=== PATIENT | male | born 1975 | race Two or more races ===

== ENCOUNTER 2016-10-18 12:25 | Emergency (ER) | payer OTHER ==
[~2016-10-18] VITALS: Ht 165.1 cm; Wt 77.1 kg
--- NOTE | 2016-10-18 12:35 | NUR ---
PT BIB RA C/O CP L SIDED TIGHTNESS RADIATION TO L ARM WHICH WAS RELIEVED WITH 1 SPRAY OF NITRO ARABIC LINGUIST. NOTED WITH SOB AND HYPERVENTILATING. PT APPEARS VERY ANXIOUS, REPORTS ANXIETY ABOUT RECENT DX OF PANCREATIC CANCER AND LACK OF F/U CARE. ENCOURAGED SLOW DEEP BREATHING. DENIES CP NOW. SKIN WARM NONDIAPHORETIC. DENIES N/V/D. IN ER BED 09 ON MONITOR.
[2016-10-18] MEDS ORDERED: LORAZEPAM 1 MG TABLET ONE (12:40)
[2016-10-18] MEDS ORDERED: NITROGLYCERIN PACKET 1 GM PACKET ONE (12:40)
[2016-10-18 12:55] VITALS: BP 109/73
--- NOTE | 2016-10-18 12:55 | NUR ---
PT REFUSES BLOOD DRAW DESPITE THOROUGH EDUCATION BY CHEMICAL LABORATORY TESTER AND MYSELF. CREDIT AND COLLECTION MANAGER NOTIFIED.
[2016-10-18] MEDS ORDERED: NITROGLYCERIN PACKET 1 GM PACKET TOP ONE (13:00)
[2016-10-18] MEDS ORDERED: LORAZEPAM 1 MG TABLET PO ONE (13:00)
--- NOTE | 2016-10-18 13:03 | NUR ---
PT REFUSES EKG DESPITE EDUCATION.
--- NOTE | 2016-10-18 13:15 | NUR ---
IV removed. Catheter intact and site benign. Pressure and 4x4 applied to site. No bleeding noted. Patient does not wish to proceed with medical care recommended by Gricelda Sun [facility]. Patient given information related to possible complications, up to and including , which could occur as a result of leaving the hospital at this time. Patient verbalizes understanding of risks involved due to leaving against medical advice. Patient has signed AMA form.
== END 2016-10-18 13:32 | disposition left against medical advice (07) ==
LOC: ER 12:27
DX: R07.89 Other chest pain (principal); I25.2 Old myocardial infarction; F17.210 Nicotine dependence, cigarettes, uncomplicated
CPT/HCPCS: 71010; 93005; 99284; A4606; Z7610

== ENCOUNTER 2018-01-23 16:02 | Inpatient (IN) | payer MEDICAID, OTHER ==
[~2018-01-23] VITALS: Ht 165.1 cm; Wt 77.1 kg
--- NOTE | 2018-01-23 16:50 | NUR ---
RN NOTES RECEIVED REPORT FROM FOREIGN NESBITT RN
--- NOTE | 2018-01-23 18:30 | NUR ---
RN NOTES RECEIVED PT DIRECT TRANSFER FROM [facility], IN [facility]. NO SOB NOTED. TOLERATING ROOM AIR WELL, A/OX4, WITH RAC G#20 SL, INTACT AND PATENT. SKIN INTACT. V/S TAKEN FOLLOWS: TEPT: 97.9; P: 60; R: 20; BP: 112/72; SPO2: 99% ROOM AIR. PLACED ON TELE MONITOR, SINUS RHYTHMS HR 62 ON TELEMONITOR. BED IN LOW AND LOCKED POSITION. 1/2 SR UP FOR SAFETY. CALL LIGHT WITHIN REACH. NOTIFIED GAMBRELER HELPER PIOTR ASKEW FOR ADMISSION ORDERS. WILL ENDORSE TO PM SHIFT NURSE FOR ADMISSION AND RICHELLE
[2018-01-23] MEDS ORDERED: HYDROCODONE/APAP 5/325MG 1 EACH TABLET PO PRN (19:30)
[2018-01-23] MEDS ORDERED: MORPHINE SULFATE INJ 2 MG/ML DISP.SYRIN IV PRN (19:30)
[2018-01-23] MEDS ORDERED: Z GUARD REMEDY 2 OZ OINT TP PRN (19:30)
[2018-01-23] MEDS ORDERED: MAGNESIUM HYDROXIDE 30 ML UDC PO PRN (19:30)
[2018-01-23] MEDS ORDERED: ACETAMINOPHEN 325 MG TABLET PO PRN (19:30)
[2018-01-23] MEDS ORDERED: ONDANSETRON HCL/PF 4 MG/2 ML VIAL IVP PRN (19:30)
[2018-01-23] MEDS ORDERED: MAG HYDROX/AL HYDROX/SIMETH 30 ML UDC PO PRN (19:30)
--- NOTE | 2018-01-23 19:30 | NUR ---
MS/RN RECEIVE PATIENT AWAKE, ALERT, ORIENTED, COMFORTABLE, NO C/O PAIN, NO DISTRESS NOTED, CALL LIGHT IN REACH. WILL MONITOR.
[2018-01-23 20:00] VITALS: BP 106/70
[2018-01-23] MEDS: IV NS 0.9% 1,000 ML IV PRN (20:17)
[2018-01-23 20:33] LABS: ALANINE AMINOTRANSFERASE 32 U/L (12-78); ALBUMIN 3.2 g/dL (3.4-5.0); ALKALINE PHOSPHATASE 92 U/L (46-116); ASPARTATE AMINOTRANSFERASE 28 U/L (15-37); BILIRUBIN,TOTAL 0.4 mg/dL (0.2-1.0); CALCIUM, SERUM 8.4 mg/dL (8.5-10.1); CARBON DIOXIDE 22 mmol/L (21-32); CHLORIDE 108 mmol/L (98-107); CREATININE 0.8 mg/dL (0.6-1.3); GLUCOSE 92 mg/dL (74-106); LIPASE 2983 U/L (73-393); POTASSIUM 3.8 mmol/L (3.5-5.1); SODIUM SERUM 137 mmol/L (136-145); TOTAL PROTEIN, SERUM 6.6 g/dL (6.4-8.2); TROPONIN I < 0.017 ng/mL (0.00-0.056); UREA NITROGEN, BLOOD 13 mg/dL (7-18)
[2018-01-23 20:34] LABS: BASOPHILS % (AUTO) 0.3 % (0.0-2.0); EOSINOPHILS % (AUTO) 5.3 % (0.0-6.0); HEMATOCRIT 42 % (39-51); HEMOGLOBIN 13.6 g/dL (13.5-17.5); LYMPHOCYTES # (AUTO) 2.3 /CMM (0.8-4.8); LYMPHOCYTES % (AUTO) 34.2 % (20.0-44.0); MEAN CORPUSCULAR HEMOGLOBIN 30 PG (26.0-33.0); MEAN CORPUSCULAR HGB CONC 33 g/dl (31.0-36.0); MEAN CORPUSCULAR VOLUME 93 fL (80-96); MONOCYTES # (AUTO) 0.5 /CMM (0.1-1.30); MONOCYTES % (AUTO) 7.7 % (2.0-12.0); NEUTROPHILS # (AUTO) 3.5 /CMM (1.8-8.9); NEUTROPHILS % (AUTO) 52.5 % (43.0-81.0); PLATELET COUNT (AUTO) 264 /CMM (150-450); RDW COEFFICIENT OF VARIATION 12.8 (11.5-15.0); WHITE BLOOD COUNT (AUTO) 6.7 K/uL (4.3-11.0)
[2018-01-23 23:17] LABS: CHOLESTEROL 156 mg/dL (<200); HDL CHOLESTEROL 43 mg/dL (40-60); LDL 102 mg/dL (0-99)
[2018-01-23 23:18] LABS: THYROID STIMULATING HORMONE 0.127 uIU/mL (0.358-3.74); TRIGLYCERIDES 41 mg/dL (30-150)
[2018-01-24] MEDS: IV NS 0.9% 1,000 ML IV PRN ×2 (04:31→23:27)
--- NOTE | 2018-01-24 06:21 | NUR ---
MS/RN PATIENT STILL SLEEPING AT THIS TIME, GOOD SLEEP NOTED THE WHOLE SHIFT, PATIENT IS COMFORTABLE, NO DISTRESS NOTED, ALL NEEDS ATTENDED AT THIS TIME, WILL CONTINUE TO MONITOR.
[2018-01-24 07:05] LABS: BASOPHILS % (AUTO) 0.5 % (0.0-2.0); EOSINOPHILS % (AUTO) 7.6 % (0.0-6.0); HEMATOCRIT 40 % (39-51); HEMOGLOBIN 13.4 g/dL (13.5-17.5); MEAN CORPUSCULAR HEMOGLOBIN 30 PG (26.0-33.0); MEAN CORPUSCULAR HGB CONC 34 g/dl (31.0-36.0); MEAN CORPUSCULAR VOLUME 90 fL (80-96); MONOCYTES # (AUTO) 0.4 /CMM (0.1-1.30); MONOCYTES % (AUTO) 7.6 % (2.0-12.0); NEUTROPHILS # (AUTO) 2.6 /CMM (1.8-8.9); NEUTROPHILS % (AUTO) 47.3 % (43.0-81.0); PLATELET COUNT (AUTO) 259 /CMM (150-450); RDW COEFFICIENT OF VARIATION 13.2 (11.5-15.0); RED BLOOD CELL COUNT(AUTO) 4.44 MIL/uL (4.5-6.0); WHITE BLOOD COUNT (AUTO) 5.4 K/uL (4.3-11.0)
--- NOTE | 2018-01-24 07:20 | NUR ---
MS/RN Patient received Patient received from caustic cresylate shift superintendent. A/O X4, stating that pain is currently 3/10 and much improved since admission. Vital signs within normal range, safety measures in place, call light within reach. Will continue to monitor and ensure safety.
[2018-01-24] MEDS ORDERED: CT SWABBABLE VALVE TRANS SET 1 EA INFUS.SET MC ONE (07:24)
[2018-01-24] MEDS ORDERED: IV NS 0.9% 250 ML IV ONE (07:24)
[2018-01-24] MEDS ORDERED: IOHEXOL-350 100 ML VIAL IV ONE (07:24)
[2018-01-24] MEDS ORDERED: DIATR MEGLU/DIATRIZOATE SODIUM 30 ML BOTTLE (GASTROGRAPHIN) ONE (07:25)
[2018-01-24 07:51] LABS: CALCIUM, SERUM 7.7 mg/dL (8.5-10.1); CREATININE 0.8 mg/dL (0.6-1.3); MAGNESIUM 1.8 mg/dL (1.8-2.4); PHOSPHORUS 2.8 mg/dL (2.5-4.9); POTASSIUM 3.9 mmol/L (3.5-5.1)
--- NOTE | 2018-01-24 07:52 | NUR ---
MS/RN Consent Consent form signed for CT scan abdomen / pelvis with contrast. Oral contrast started.
[2018-01-24 08:07] VITALS: BP 115/72
[2018-01-24] MEDS: PANTOPRAZOLE 40 MG VIAL IV SCH (08:21)
[2018-01-24 08:33] VITALS: BP 115/72
--- NOTE | 2018-01-24 08:58 | NUR ---
MS/RN Labs Morning labs reviewed: -WBC 5.4 -Lipase 614
--- NOTE | 2018-01-24 12:17 | NUR ---
MS/RN CT scan results CT abdomen and pelvis resulted: -no evidence of abnormal pancreatic masses or lesions. -contracted gallbladder. [employer] called, Tho Nassar paged to inform of results. Patient requesting to eat and drink.
[2018-01-24 13:27] LABS: BILIRUBIN,DIRECT 0.1 mg/dL (0.0-0.2); BILIRUBIN,TOTAL 0.1 mg/dL (0.2-1.0)
[2018-01-24 13:29] LABS: ALBUMIN 3.1 g/dL (3.4-5.0); TOTAL PROTEIN, SERUM 5.9 g/dL (6.4-8.2)
--- NOTE | 2018-01-24 14:00 | NUR ---
MS/RN Diet Tolerating soft diet, no nausea or vomiting.
[2018-01-24 16:00] VITALS: BP 110/62
--- NOTE | 2018-01-24 16:00 | NUR ---
MS/RN S/B Surgery Seen by surgery - no surgery at this time, but will likely require gallbladder removal in future. Continue with diet as tolerated.
[2018-01-24 16:37] VITALS: BP 110/62
--- NOTE | 2018-01-24 18:20 | NUR ---
MS/RN End note Patient remains in stable condition, continues to deny pain, tolerating diet. For possible discharge tomorrow if labs remain within normal limits.
--- NOTE | 2018-01-24 19:30 | NUR ---
MS/RN RECEIVE PATIENT AWAKE, ALERT, ORIENTED, COMFORTABLE, NO C/O PAIN, NO DISTRESS NOTED, FAMILY MEMBERS AT BEDSIDE. WILL MONITOR.
[2018-01-24 20:00] VITALS: BP 138/83
--- NOTE | 2018-01-24 22:24 | NUR ---
MS/RN PATIENT IS ALREADY SLEEPING AT THIS TIME, APPEAR COMFORTABLE, NO SIGNS OF DISTRESS NOTED, CALL LIGHT IN REACH. WILL CONTINUE TO MONITOR.
[2018-01-25] MEDS: IV NS 0.9% 1,000 ML IV PRN (06:18)
--- NOTE | 2018-01-25 06:21 | NUR ---
MS/RN PATIENT IS AWAKE, COMFORTABLE, NO C/O PAIN, NO DISTRESS NOTED, ALL NEEDS ATTENDED AT THIS TIME, WILL CONTINUE TO MONITOR.
--- NOTE | 2018-01-25 07:19 | NUR ---
MS RN NOTES PATIENT RECEIVED RESTING INSIDE ROOM. SLEEPING, EASILY AROUSABLE THROUGH VERBAL AND TACTILE STIMULI. BREATHING EVEN AND UNLABORED. NO SOB OR ACUTE DISTRESS NOTED AT THIS TIME. PATIENT CALM AND RELAXED. NO CHANGES IN LOC NOTED AT THIS TIME. PATIENT CALM AND RELAXED. IV INTACT AND PATENT, NO SWELLING OR BLEEDING NOTED ON SITE. PATIENT DENIES ANY PAIN OR DISCOMFORT AT THIS TIME. WILL CONTINUE TO MONITOR. BED LOCKED AND IN LOW POSITION. BILATERAL UPPER SIDE RAILS UP AND LOCKED. CALL LIGHT WITHIN EASY REACH
[2018-01-25 08:00] VITALS: BP 135/90
[2018-01-25] MEDS: PANTOPRAZOLE 40 MG VIAL IV SCH (08:14)
--- NOTE | 2018-01-25 13:17 | NUR ---
MS RN NOTES PATIENT FOR DISCHARGE HOME TODAY. DISCHARGE INSTRUCTIONS AND EDUCATION GIVEN TO PATIENT AND VERBALIZED UNDERSTANDING. IV REMOVED WITH MINIMAL BLEEDING NOTED, PRESSURE DRESSING APPLIED TO SITE. ALL BELONGINGS COMPLETE ON DISCHARGE, NO REPORT OF MISSING INVENTORY. ACCOMPANIED PATIENT OUTSIDE HOSPITAL, PATIENT AMBULATORY. AFEBRILE, SKIN DRY AND WARM TO TOUCH, NO NEW SKIN BREAKDOWN NOTED.PATIENT LEFT UNIT WITH SIGNIFICANT OTHER, LEFT VIA PRIVATE CAR. MD AWARE OF DISCHARGE
== END 2018-01-25 13:00 | disposition home or self-care (01) | DRG 282 ==
LOC: MED 18:15
PROVIDERS: ADMIT Nurse Practitioner Acute Care; ATTEND Nurse Practitioner Acute Care
DX: K85.10 Biliary acute pancreatitis without necrosis or infection (principal); Q43.3 Congenital malformations of intestinal fixation; F17.210 Nicotine dependence, cigarettes, uncomplicated; K80.20 Calculus of gallbladder without cholecystitis without obstruction; F12.90 Cannabis use, unspecified, uncomplicated; R07.89 Other chest pain; E88.09 Other disorders of plasma-protein metabolism, not elsewhere classified; E83.51 Hypocalcemia
CPT/HCPCS: 36415; 74178; 80048-TC; 80053-TC; 80061-TC; 80076-TC; 83605-TC; 83690-TC; 83735-TC; 84100-TC; 84443-TC; 84484-TC; 85025-TC; 87081-TC; C9113; J7030; J7050; Q9963; Q9967

== ENCOUNTER 2018-02-12 20:06 | Inpatient (IN) | payer MEDICAID ==
[~2018-02-12] VITALS: Ht 170.2 cm; Wt 77.1 kg
[2018-02-12 20:00] VITALS: BP 118/73
--- NOTE | 2018-02-12 20:13 | NUR ---
PATIENT WHEELCHAIRED TO ER BED BY EMT
[2018-02-12] MEDS ORDERED: MORPHINE SULFATE INJ 4 MG/ML DISP.SYRIN ONE ×3 (20:21→21:32)
[2018-02-12] MEDS ORDERED: LORAZEPAM INJ 2 MG/ML VIAL ONE (20:22)
[2018-02-12] MEDS ORDERED: ONDANSETRON HCL/PF 4 MG/2 ML VIAL ONE (20:22)
--- NOTE | 2018-02-12 20:25 | NUR ---
16G LEFT AC IV STARTED, BLOOD SAMLPE OBTAINED ANS SENT TO LAB. MEDICATED PT ORDERED
[2018-02-12] MEDS ORDERED: LORAZEPAM INJ 2 MG/ML VIAL IV ONE (20:30)
[2018-02-12] MEDS ORDERED: MORPHINE SULFATE INJ 2 MG/ML DISP.SYRIN IV ONE ×2 (20:30→21:30)
[2018-02-12] MEDS ORDERED: ONDANSETRON HCL/PF 4 MG/2 ML VIAL IVP ONE (20:30)
[2018-02-12] MEDS ORDERED: IV NS 0.9% 1,000 ML BAG IV ONE ×2 (20:30→22:00)
[2018-02-12 21:00] LABS: BASOPHILS # (AUTO) 0.1 /CMM (0.0-0.2); BASOPHILS % (AUTO) 1.1 % (0.0-2.0); CALCIUM, SERUM 8.4 mg/dL (8.5-10.1); CARBON DIOXIDE 30 mmol/L (21-32); CHLORIDE 105 mmol/L (98-107); EOSINOPHILS % (AUTO) 3.5 % (0.0-6.0); GLUCOSE 122 mg/dL (74-106); HEMATOCRIT 44 % (39-51); HEMOGLOBIN 14.6 g/dL (13.5-17.5); LYMPHOCYTES # (AUTO) 5.1 /CMM (0.8-4.8); LYMPHOCYTES % (AUTO) 55.3 % (20.0-44.0); MEAN CORPUSCULAR HEMOGLOBIN 29 PG (26.0-33.0); MEAN CORPUSCULAR HGB CONC 33 g/dl (31.0-36.0); MEAN CORPUSCULAR VOLUME 88 fL (80-96); MONOCYTES # (AUTO) 0.8 /CMM (0.1-1.30); MONOCYTES % (AUTO) 8.5 % (2.0-12.0); NEUTROPHILS # (AUTO) 2.9 /CMM (1.8-8.9); NEUTROPHILS % (AUTO) 31.6 % (43.0-81.0); PLATELET COUNT (AUTO) 382 /CMM (150-450); POTASSIUM 3.4 mmol/L (3.5-5.1); RDW COEFFICIENT OF VARIATION 12.3 (11.5-15.0); RED BLOOD CELL COUNT(AUTO) 4.99 MIL/uL (4.5-6.0); SODIUM SERUM 141 mmol/L (136-145); UREA NITROGEN, BLOOD 15 mg/dL (7-18); WHITE BLOOD COUNT (AUTO) 9.2 K/uL (4.3-11.0)
[2018-02-12 21:04] LABS: TROPONIN I < 0.017 ng/mL (0.00-0.056)
[2018-02-12 21:08] LABS: ALANINE AMINOTRANSFERASE 21 U/L (12-78); ALBUMIN 3.6 g/dL (3.4-5.0); ALKALINE PHOSPHATASE 98 U/L (46-116); ASPARTATE AMINOTRANSFERASE 27 U/L (15-37); BILIRUBIN,TOTAL 0.3 mg/dL (0.2-1.0); TOTAL PROTEIN, SERUM 7.1 g/dL (6.4-8.2)
[2018-02-12 21:14] LABS: ACETAMINOPHEN 0 ug/ml (10-30); ALCOHOL, BLOOD < 3 mg/dL (0-0); SALICYLATE 0.9 mg/dL (2.8-20.0)
--- NOTE | 2018-02-12 21:30 | NUR ---
REGISTERED SAFETY ENGINEER AT BED SIDE FOR US
[2018-02-12 21:40] LABS: LIPASE 8047 U/L (73-393)
--- NOTE | 2018-02-12 21:51 | NUR ---
CALLED NURSING TABLE OPERATOR AND REQUESTED A MED SURG RM FOR THIS PT. CALLED [facility] FOR PANEL CALL AND MAGGIE BRADY WAS PAGED
--- NOTE | 2018-02-12 22:01 | NUR ---
PT IS ASSIGNED TO MED SURG RM#: [id number], DX: PANCREATITIS, AND ACCEPTING: MAGGIE BRADY DNP
--- NOTE | 2018-02-12 22:18 | NUR ---
DIANE HENDRICKSON TOOK REPORT
--- NOTE | 2018-02-12 22:29 | NUR ---
TRANSPORTED PT TO MS BED VIA WHEELCHAIR
--- NOTE | 2018-02-12 22:50 | NUR ---
MS2/RN RECEIVE PATIENT FROM E.R., PATIENT IS AWAKE BUT VERY SLEEPY HENCE UNABLE TO OBTAIN ADMISSION INFORMATION, WILL TRY AGAIN WHEN PATIENT IS MORE AWAKE, PATIENT APPEAR COMFORTABLE, NO DISTRESS NOTED, MADE COMFORTABLE IN BED, WILL MONITOR.
[2018-02-12] MEDS ORDERED: ACETAMINOPHEN 325 MG TABLET PO PRN (23:30)
[2018-02-12] MEDS ORDERED: ZOLPIDEM TARTRATE 5 MG TABLET PO PRN (23:30)
[2018-02-12] MEDS ORDERED: Z GUARD REMEDY 2 OZ OINT TP PRN (23:30)
[2018-02-12] MEDS ORDERED: ONDANSETRON HCL/PF 4 MG/2 ML VIAL IVP PRN (23:30)
[2018-02-12] MEDS: HYDROMORPHONE INJ 2 MG/ML DISP.SYRIN IV PRN (23:31)
[2018-02-12] MEDS: IV NS 0.9% 1,000 ML IV PRN (23:38)
[2018-02-12] MEDS: PANTOPRAZOLE 40 MG VIAL IV SCH (23:49)
[2018-02-12] MEDS ORDERED: Thiamine 100 MG/ML VIAL ONE (23:56)
[2018-02-13] MEDS: Thiamine 100 MG in IV D5W 50 ML IV SCH ×2 (00:04→23:05)
[2018-02-13] MEDS: IV NS 0.9% 1,000 ML IV PRN ×3 (04:57→23:07)
[2018-02-13] MEDS: HYDROMORPHONE INJ 2 MG/ML DISP.SYRIN IV PRN ×2 (05:23→19:35)
[2018-02-13 06:26] LABS: BASOPHILS % (AUTO) 0.2 % (0.0-2.0); EOSINOPHILS % (AUTO) 1.8 % (0.0-6.0); HEMATOCRIT 40 % (39-51); HEMOGLOBIN 13.3 g/dL (13.5-17.5); LYMPHOCYTES # (AUTO) 2.5 /CMM (0.8-4.8); LYMPHOCYTES % (AUTO) 26.4 % (20.0-44.0); MEAN CORPUSCULAR HEMOGLOBIN 30 PG (26.0-33.0); MEAN CORPUSCULAR HGB CONC 33 g/dl (31.0-36.0); MEAN CORPUSCULAR VOLUME 92 fL (80-96); MONOCYTES # (AUTO) 0.5 /CMM (0.1-1.30); MONOCYTES % (AUTO) 5.8 % (2.0-12.0); NEUTROPHILS # (AUTO) 6.1 /CMM (1.8-8.9); NEUTROPHILS % (AUTO) 65.8 % (43.0-81.0); PLATELET COUNT (AUTO) 298 /CMM (150-450); RDW COEFFICIENT OF VARIATION 12.7 (11.5-15.0); RED BLOOD CELL COUNT(AUTO) 4.38 MIL/uL (4.5-6.0); WHITE BLOOD COUNT (AUTO) 9.3 K/uL (4.3-11.0)
--- NOTE | 2018-02-13 06:40 | NUR ---
[facility].
[2018-02-13 06:56] LABS: BILIRUBIN,TOTAL 0.5 mg/dL (0.2-1.0); CALCIUM, SERUM 7.6 mg/dL (8.5-10.1); CREATININE 0.7 mg/dL (0.6-1.3); PHOSPHORUS 2.8 mg/dL (2.5-4.9); TOTAL PROTEIN, SERUM 6.1 g/dL (6.4-8.2)
--- NOTE | 2018-02-13 07:10 | NUR ---
MS2/RN PATIENT AWAKE BUT SLEEPY STILL, COMFORTABLE, NO DISTRESS NOTED, ALL NEEDS ATTENDED AT THIS TIME, WILL MONITOR.
[2018-02-13 07:19] LABS: THYROID STIMULATING HORMONE 1.12 uIU/mL (0.358-3.74)
[2018-02-13 08:00] VITALS: BP 113/67
--- NOTE | 2018-02-13 08:00 | NUR ---
MS2/RN RECEIVED PATIENT SLEEPY BUT AROUSABLE REFUSED TO BE BOTHERED.ON NPO FOR MRCP PROCEDURE.CONSENTS HAS BEEN SIGNED.PATIENT APPEARS COMFORTABLE, NO DISTRESS NOTED, WILL MONITOR.CALL LIGHT PLACED WITHIN REACH.
[2018-02-13] MEDS: MULTIVITAMINS,THERAGRAN 1 UDTAB TABLET PO SCH (08:56)
[2018-02-13] MEDS: FOLIC ACID 1 MG TABLET PO SCH (08:56)
--- NOTE | 2018-02-13 13:00 | NUR ---
MRCP PROCEDURE DONE.PT TOLERATED FULL LIQUID LUNCH MEAL.NO C/O DISCOMFORT OR NAUSEA.
[2018-02-13 16:02] VITALS: BP 122/72
--- NOTE | 2018-02-13 17:07 | NUR ---
PT RESTING AND SLEEPING IN BED BUT AROUSABLE.WITH NO C/O STOMACH DISCOMFORT.WITH ONGOING IVF OF NS AT 200 ML/HR INFUSING WELL.CALL LIGHT WITHIN REACH.
--- NOTE | 2018-02-13 19:15 | NUR ---
MS RN NOTES RECEIVED PT IN BED, ASLEEP AT THIS TIME, AROUSES EASILY, A/O X 4, VERBALLY RESPONSIVE. FAMILY AT BEDSIDE. NO DISTRESS, NO SOB NOTED. RESPIRATION IS EVEN AND UNLABORED. IV SITE ON LAC INTACT AND PATENT, NOS /S OF INFILTRATION NOTED. IVF CONNECTED AND INFUSING WELL. NO C/O ABDOMINAL PAIN OR DISCOMFORT AT THIS TIME. SAFETY PRECAUTIONS OBSERVED. ALL NEEDS ATTENDED AND MET. CALL LIGHT WITHIN REACH. WILL CONT TO MONITOR.
[2018-02-13 20:00] VITALS: BP 130/75
[2018-02-13] MEDS: PANTOPRAZOLE 40 MG VIAL IV SCH (23:05)
--- NOTE | 2018-02-14 06:50 | NUR ---
MS RN NOTES PT IN BED, ASLEEP AT THIS TIME, APPEARS COMFORTABLE. AROUSES EASILY, A/O X 4, VERBALLY RESPONSIVE. NO DISTRESS, NO SOB NOTED. RESPIRATION IS EVEN AND UNLABORED. IV SITE ON LAC INTACT AND PATENT, NO S/S OF INFILTRATION NOTED. IVF INFUSING WELL. NO C/O ABDOMINAL PAIN OR DISCOMFORT AT THIS TIME. SAFETY PRECAUTIONS OBSERVED. ALL NEEDS ATTENDED AND MET. CALL LIGHT WITHIN REACH. WILL ENDORSE TO NEXT SHIFT FOR RICHELLE.
[2018-02-14 06:54] LABS: BASOPHILS % (AUTO) 0.4 % (0.0-2.0); EOSINOPHILS % (AUTO) 5.1 % (0.0-6.0); HEMATOCRIT 41 % (39-51); HEMOGLOBIN 13.8 g/dL (13.5-17.5); LYMPHOCYTES # (AUTO) 1.9 /CMM (0.8-4.8); LYMPHOCYTES % (AUTO) 32.7 % (20.0-44.0); MEAN CORPUSCULAR HEMOGLOBIN 30 PG (26.0-33.0); MEAN CORPUSCULAR HGB CONC 34 g/dl (31.0-36.0); MEAN CORPUSCULAR VOLUME 90 fL (80-96); MONOCYTES # (AUTO) 0.4 /CMM (0.1-1.30); MONOCYTES % (AUTO) 7.5 % (2.0-12.0); NEUTROPHILS # (AUTO) 3.1 /CMM (1.8-8.9); NEUTROPHILS % (AUTO) 54.3 % (43.0-81.0); PLATELET COUNT (AUTO) 297 /CMM (150-450); RDW COEFFICIENT OF VARIATION 12.8 (11.5-15.0); RED BLOOD CELL COUNT(AUTO) 4.55 MIL/uL (4.5-6.0); WHITE BLOOD COUNT (AUTO) 5.7 K/uL (4.3-11.0)
[2018-02-14 07:10] LABS: CALCIUM, SERUM 7.9 mg/dL (8.5-10.1); CREATININE 0.8 mg/dL (0.6-1.3); POTASSIUM 3.6 mmol/L (3.5-5.1)
--- NOTE | 2018-02-14 07:24 | NUR ---
RN OPENING NOTES RECEIVED PATIENT IN BED ASLEEP. AROUSES EASILY. A/OX4. NO ACUTE DISTRESS, NO SOB. DENIED PAIN AT THE MOMENT. IV SITE INTACT AND PATENT, INFUSING FLUIDS @ 200CC/HR. KEPT PATIENT SAFE AND COMFORTABLE. BED IN LOW/LOCKED POSITION, SIDERAILS UPX2, CALL LIGHT IN REACH. WILL CONTINUE TO MONITOR ACCORDINGLY
[2018-02-14 08:00] VITALS: BP 121/80
[2018-02-14] MEDS: FOLIC ACID 1 MG TABLET PO SCH (08:26)
[2018-02-14] MEDS: MULTIVITAMINS,THERAGRAN 1 UDTAB TABLET PO SCH (08:26)
[2018-02-14] MEDS: HYDROMORPHONE INJ 2 MG/ML DISP.SYRIN IV PRN (11:03)
[2018-02-14 16:00] VITALS: BP 116/71
--- NOTE | 2018-02-14 17:50 | NUR ---
SALES MARKET LEADER NOTES DISCHARGED PATIENT HOME IN STABLE CONDITION ACCOMPANIED BY PRIMARY RN. DISCHARGE INSTRUCTIONS GIVEN, VERBALIZED UNDERSTANDING, PAPERWORK GIVEN. ALL BELONGINGS RETURNED. FORM SIGNED. REMOVED IV, APPLIED PRESSURE, NO BLEEDING, NO COMPLICATIONS. REMOVED NAME BAND.
== END 2018-02-14 18:04 | disposition home or self-care (01) | DRG 282 ==
LOC: ER 20:08 → MEDSG2 22:20
PROVIDERS: ADMIT Nurse Practitioner Acute Care; ATTEND Nurse Practitioner Acute Care
DX: K85.90 Acute pancreatitis without necrosis or infection, unspecified (principal); E44.1 Mild protein-calorie malnutrition; E87.6 Hypokalemia; F17.210 Nicotine dependence, cigarettes, uncomplicated; R73.9 Hyperglycemia, unspecified; Z68.26 Body mass index [BMI] 26.0-26.9, adult; E88.09 Other disorders of plasma-protein metabolism, not elsewhere classified; K86.1 Other chronic pancreatitis
CPT/HCPCS: 36415; 74181-TC; 76705-TC; 80048-TC; 80053-TC; 80061-TC; 80076-TC; 83690-TC; 83735-TC; 84100-TC; 84443-TC; 84484-TC; 85025-TC; 87081-TC; A4606; C9113; G0480; J1170; J2060; J2270; J2405; J3411; J7030; J7060; Z7610